=== PATIENT | female | born 1955 | race Caucasian/White ===

== ENCOUNTER 2022-04-15 18:19 | Emergency (ER) | payer OTHER ==
[2022-04-15 18:40] VITALS: BP 144/77; PULSE 83; RESP 17; TEMP 98; BMI 28.1
[2022-04-15] MEDS ORDERED: DIPHTH,PERTUSS(ACELL),TET 0.5 ML DISP.SYRIN IM ONE ×2 (19:27→20:03)
== END 2022-04-15 20:51 | disposition home or self-care (01) ==
LOC: JER 18:19 → JERFT 18:19
PROC: 3E0234Z Introduction of Serum, Toxoid and Vaccine into Muscle, Percutaneous Approach (ICD-10-PCS; principal; 2022-04-15)
DX: S82.892A Other fracture of left lower leg, initial encounter for closed fracture (principal); M79.641 Pain in right hand; R07.9 Chest pain, unspecified; V49.40XA Driver injured in collision with unspecified motor vehicles in traffic accident, initial encounter
CPT/HCPCS: 71046-TC-FY; 73130-TC-RT-FY; 73610-TC-LT-FY; 90715; 93005; 93010; 99285-25